=== PATIENT | female | born 1980 | race African-American/Black ===

== ENCOUNTER 2021-07-14 18:39 | Inpatient (IN) ==
[2021-07-14 19:47] LABS: Bilirubin,Urine Negative (Negative); Blood, Urine Large mg/dL (Negative); Glucose,Urine (UA) Negative (Negative); Ketones,Urine Negative (Negative); Nitrite,Urine Negative (Negative); Protein,Urine 30 MG/DL; RBC,Urine 2365 /HPF (0-4); Squamous Epithelial Cell,Urine Occasional /HPF (0-10); Urine Appearance Slightly Hazy (Clear); Urine Color Amber (Yellow); Urine Specific Gravity 1.015 (1.001-1.035)
[2021-07-14 19:52] LABS: Basophils % 0.2 % (0.0-0.8); Hematocrit 42.2 VOL% (35.7-47.0); Hemoglobin 13.7 GM/DL (12.0-16.0); Immature Granulocytes % 0.2 %; Immature Granulocytes Absolute 0.01 #; Lymphocytes # 1.3 10*3/uL (1.4-4.0); Lymphocytes % 20.6 % (21.3-54.2); Mean Corpuscular HGB Conc 32.5 GM/DL (32-36); Mean Corpuscular Volume 80.7 FL (87-102); Mean Platelet Volume 9.8 FL (9.6-12.0); Monocytes % 6.7 % (1.7-12.7); Neutrophils % 72.3 % (38.7-73.9); Platelet Count 330 T/CUMM (130-400); Red Blood Count 5.23 MC/CUMM (3.8-5.5); Red Cell Distribution Width 14.2 % (9.3-17.3); White Blood Count 6.1 T/CUMM (4-12)
[2021-07-14 20:05] LABS: Albumin 3.7 G/DL (3.4-5.0); Bilirubin,Total 1.5 MG/DL (0.20-1.00); Calcium 9.7 MG/DL (8.5-10.1); Osmolality,Calculated 281.3 MOS/KG (273-304); Potassium 4.3 MMOL/L (3.5-5.1); Total Protein 7.9 G/DL (6.4-8.2)
[2021-07-14] MEDS ORDERED: MORPHINE 2 MG/1 ML SYRINGE IV STA (20:17)
[2021-07-14] MEDS ORDERED: ONDANSETRON 4 MG/2 ML VIAL IV STA ×2 (20:18→21:11)
[2021-07-14] MEDS ORDERED: MORPHINE 2 MG/1 ML SYRINGE ONE (20:24)
[2021-07-14 21:19] LABS: Hepatitis B Core IgM Quant 0.08 Index; Hepatitis B Surface Ag Quant 0.18 Index; Hepatitis B Surface Ag Result Non-Reactive (NonReactive); Hepatitis C Virus Ab Quant 0.13 Index; Hepatitis C Virus Ab Result Non-Reactive (NonReactive)
[2021-07-14] MEDS ORDERED: ONDANSETRON 4 MG/2 ML VIAL IV PRN (22:36)
[2021-07-14] MEDS ORDERED: ZALEPLON 5 MG CAPSULE PO PRN (22:36)
[2021-07-14] MEDS ORDERED: MORPHINE 2 MG/1 ML SYRINGE IV PRN (22:36)
[2021-07-15] MEDS: SODIUM CHLORIDE 0.45% 1,000 ML IV SCH ×2 (00:44→08:53)
[2021-07-15] MEDS: LEVOFLOXACIN INJ 500 MG/100 ML PREMIX IV SCH ×2 (00:44→21:38)
[2021-07-15] MEDS: metroNIDAZOLE INJ 500 MG/100 ML PREMIX IV SCH ×4 (02:45→22:59)
[2021-07-15 06:40] LABS: Basophils % 0.2 % (0.0-0.8); Hematocrit 38.8 VOL% (35.7-47.0); Hemoglobin 12.6 GM/DL (12.0-16.0); Immature Granulocytes % 0.5 %; Immature Granulocytes Absolute 0.03 #; Lymphocytes # 1.7 10*3/uL (1.4-4.0); Lymphocytes % 27.4 % (21.3-54.2); Mean Corpuscular HGB Conc 32.5 GM/DL (32-36); Mean Corpuscular Volume 81.2 FL (87-102); Mean Platelet Volume 9.9 FL (9.6-12.0); Monocytes % 9.9 % (1.7-12.7); Platelet Count 285 T/CUMM (130-400); Red Blood Count 4.78 MC/CUMM (3.8-5.5); Red Cell Distribution Width 14.4 % (9.3-17.3); White Blood Count 6.3 T/CUMM (4-12)
[2021-07-15 07:22] LABS: Albumin 3.2 G/DL (3.4-5.0); Bilirubin,Total 2.3 MG/DL (0.20-1.00); Calcium 8.9 MG/DL (8.5-10.1); Osmolality,Calculated 274.7 MOS/KG (273-304); Potassium 3.8 MMOL/L (3.5-5.1); Total Protein 7.1 G/DL (6.4-8.2)
[2021-07-15] MEDS ORDERED: MORPHINE 2 MG/1 ML SYRINGE IV PRN ×2 (10:51)
[2021-07-16] MEDS: SODIUM CHLORIDE 0.45% 1,000 ML IV SCH ×3 (02:21→20:20)
[2021-07-16 05:04] LABS: Albumin 3.2 G/DL (3.4-5.0); Bilirubin,Total 0.7 MG/DL (0.20-1.00); Calcium 8.7 MG/DL (8.5-10.1); Osmolality,Calculated 272.8 MOS/KG (273-304); Potassium 3.7 MMOL/L (3.5-5.1)
[2021-07-16] MEDS: metroNIDAZOLE INJ 500 MG/100 ML PREMIX IV SCH ×4 (05:58→23:03)
[2021-07-16] MEDS ORDERED: propofoL 200 MG/20 ML VIAL IV ONE (09:31)
[2021-07-16] MEDS ORDERED: MIDAZOLAM 2 MG/2 ML VIAL ONE (09:31)
[2021-07-16] MEDS ORDERED: ROCURONIUM 50 MG/5 ML VIAL IV ONE (09:31)
[2021-07-16] MEDS ORDERED: LIDOCAINE 2% 5 ML VIAL ONE (09:31)
[2021-07-16] MEDS ORDERED: fentaNYL 100 MCG/2 ML VIAL ONE ×2 (09:31→10:26)
[2021-07-16] MEDS ORDERED: LIDOCAINE 1%/EPI INJ 20 ML VIAL ONE (09:40)
[2021-07-16] MEDS ORDERED: BUPIVACAINE MPF 0.25% 30 ML VIAL ONE (09:41)
[2021-07-16] MEDS ORDERED: DEXAMETHASONE 4 MG/1 ML VIAL ONE (10:04)
[2021-07-16] MEDS ORDERED: KETOROLAC 30 MG/1 ML VIAL ONE (10:04)
[2021-07-16] MEDS ORDERED: ONDANSETRON 4 MG/2 ML VIAL ONE (10:04)
[2021-07-16] MEDS ORDERED: PHENYLEPHRINE 1 MG/10 ML SYRINGE IV ONE (10:08)
[2021-07-16] MEDS ORDERED: ACETAMINOPHEN INJ 0 MG/0 ML VIAL IV ONE (10:19)
[2021-07-16] MEDS ORDERED: SEVOFLURANE 1 UNIT/15 MINUTE INH ONE ×5 (10:20→10:56)
[2021-07-16] MEDS ORDERED: GLYCOPYRROLATE 0.4 MG/2 ML VIAL ONE (10:50)
[2021-07-16] MEDS ORDERED: NEOSTIGMINE 10 MG/10 ML VIAL ONE (10:51)
[2021-07-16] MEDS ORDERED: TISSUE ADHESIVE 1 EACH APPLICATOR TOP ONE (10:56)
[2021-07-16] MEDS ORDERED: HYDROmorphone 2 MG/1 ML VIAL IV PRN (11:43)
[2021-07-16] MEDS ORDERED: ONDANSETRON 4 MG/2 ML VIAL IV PRN (11:43)
[2021-07-16] MEDS ORDERED: BISACODYL 5 MG TABLET PO PRN (13:42)
[2021-07-16] MEDS ORDERED: KETOROLAC 15 MG/1 ML VIAL IV PRN (13:42)
[2021-07-16] MEDS ORDERED: ACETAMINOPHEN 325 MG TABLET PO PRN (13:42)
[2021-07-16] MEDS: LEVOFLOXACIN INJ 500 MG/100 ML PREMIX IV SCH (20:20)
[2021-07-17] MEDS: SODIUM CHLORIDE 0.45% 1,000 ML IV SCH ×2 (02:58→11:07)
[2021-07-17] MEDS: metroNIDAZOLE INJ 500 MG/100 ML PREMIX IV SCH (04:03)
[2021-07-17 05:19] LABS: Basophils % 0.1 % (0.0-0.8); Hematocrit 38.1 VOL% (35.7-47.0); Hemoglobin 12.3 GM/DL (12.0-16.0); Immature Granulocytes % 0.6 %; Immature Granulocytes Absolute 0.06 #; Lymphocytes # 1.4 10*3/uL (1.4-4.0); Lymphocytes % 14.4 % (21.3-54.2); Mean Corpuscular HGB Conc 32.3 GM/DL (32-36); Mean Corpuscular Volume 80.5 FL (87-102); Mean Platelet Volume 9.6 FL (9.6-12.0); Monocytes % 7.9 % (1.7-12.7); Platelet Count 332 T/CUMM (130-400); Red Blood Count 4.73 MC/CUMM (3.8-5.5); Red Cell Distribution Width 14.3 % (9.3-17.3); White Blood Count 9.8 T/CUMM (4-12)
[2021-07-17 05:35] LABS: PT Patient Result 11.4 SECS (10.5-12.0)
[2021-07-17 05:43] LABS: Albumin 3.1 G/DL (3.4-5.0); Bilirubin,Total 0.5 MG/DL (0.20-1.00); Calcium 8.8 MG/DL (8.5-10.1); Potassium 4.1 MMOL/L (3.5-5.1); Total Protein 6.9 G/DL (6.4-8.2)
[2021-07-17] MEDS ORDERED: INDOMETHACIN SUPP 50 MG SUPP RECTAL ONE (08:00)
[2021-07-17] MEDS ORDERED: LACTATED RINGERS 1,000 ML IV SCH (08:00)
[2021-07-17] MEDS ORDERED: MIDAZOLAM 2 MG/2 ML VIAL ONE (11:30)
[2021-07-17] MEDS ORDERED: LIDOCAINE 2% 5 ML VIAL ONE (11:30)
[2021-07-17] MEDS ORDERED: fentaNYL 100 MCG/2 ML VIAL ONE (11:30)
[2021-07-17] MEDS ORDERED: SUCCINYLCHOLINE 200 MG/10 ML VIAL ONE (11:30)
[2021-07-17] MEDS ORDERED: propofoL 200 MG/20 ML VIAL IV ONE (11:30)
[2021-07-17] MEDS ORDERED: SEVOFLURANE 1 UNIT/15 MINUTE INH ONE (13:56)
[2021-07-17] MEDS ORDERED: DEXAMETHASONE 4 MG/1 ML VIAL ONE (13:56)
[2021-07-17] MEDS ORDERED: ONDANSETRON 4 MG/2 ML VIAL ONE (13:56)
[2021-07-17 15:51] VITALS: BP 142/87
[2021-07-17] MEDS ORDERED: metroNIDAZOLE INJ 500 MG/100 ML PREMIX IV SCH (17:00)
== END 2021-07-17 18:44 | disposition home or self-care (01) | DRG 418 ==
LOC: N.ED 18:39 → N.EDINP 22:36 → N.5E 23:58
PROVIDERS: ADMIT Internal Medicine; ATTEND Internal Medicine
PROC: LAPCHOL (2021-07-16 09:50)
PROC: ERCPWSP (ICD-10-PCS; 2021-07-17 11:35)